=== PATIENT | female | born 1955 | race Caucasian/White ===

== ENCOUNTER 2017-08-14 09:39 | Emergency (ER) | payer OTHER ==
--- NOTE | 2017-08-14 11:59 | RAD ---
HISTORY: Status post colonoscopy, abdominal pain COMPARISONS: None VIEWS: Frontal supine and upright views of the abdomen. FINDINGS: BOWEL: There is a nonspecific bowel gas pattern with nondilated small bowel gas. There is gaseous distention of the colon without dilatation. CALCULI: There are no abnormal calculi. BONES AND SOFT TISSUES: There are no osseous abnormalities. OTHER FINDINGS: The lung bases are clear. There is no subphrenic gas. IMPRESSION: NONSPECIFIC BOWEL GAS PATTERN. NO APPRECIABLE FREE INTRAPERITONEAL GAS.
[2017-08-14 12:09] VITALS: BP 140/75
--- NOTE | 2017-08-16 12:13 | ED ---
Angel White Nilda, scribed for Reed Hdz MD on 08/14/17 at 1107 . Abdominal Pain/Female - HPI Summary HPI Summary: This patient is a 62 year old F presenting to [facility] with a chief complaint of intermittent diffuse abdominal pain since last night. Yesterday morning, patient had a colonoscopy to remove a polyp. S/p colonoscopy, later that day, she experienced abdominal pain and was advised to come to the ED. The patient rates the pain 2/10 in severity. Symptoms aggravated and alleviated by nothing. Patient reports she has not been able to pass much flatus. Patient denies N/V, fever, chills, and diaphoresis. Patient is currently on no medications. - History of Current Complaint Chief Complaint: EDAbdPain Stated Complaint: ABD PAIN, COLPOSCOPY YESTERDAY Time Seen by Provider: 08/14/17 10:37 Hx Obtained From: Patient Onset/Duration: Sudden Onset Timing: Intermittent Episode Lasting Severity Currently: Mild Pain Intensity: 2 Pain Scale Used: 0-10 Numeric Location: Diffuse Radiates: No Character: Dull Aggravating Factor(s): Nothing Alleviating Factor(s): Nothing Associated Signs and Symptoms: Negative: Diaphoresis, Fever, Nausea Allergies/Adverse Reactions: Allergies Allergy/AdvReac Type Severity Reaction Status Date / Time No Known Allergies Allergy Verified 08/14/17 10:03 PMH/Surg Hx/FS Hx/Imm Hx Endocrine/Hematology History: Denies: Hx Diabetes Cardiovascular History: Denies: Hx Congestive Heart Failure, Hx Hypertension Respiratory History: Reports: Other Respiratory Problems/Disorders - pneumonia since April 2016 History: Denies: Hx Renal Disease Musculoskeletal History: Reports: Hx Back Problems - partial herniated disc l-4/ 5 Sensory History: Reports: Hx Contacts or Glasses - reading glasses Opthamlomology History: Reports: Hx Contacts or Glasses - reading glasses Neurological History: Reports: Hx Headaches - occasional - Cancer History Hx Chemotherapy: No Hx Radiation Therapy: No - Surgical History Surgery Procedure, Year, and Place: tonsillectomy as a child Infectious Disease History: No Infectious Disease History: Denies: Traveled Outside the [place] in Last 30 Days - Family History Known Family History: Positive: Hypertension, Diabetes - Social History Alcohol Use: Daily Alcohol Amount: two glasses of wine daily Substance Use Type: Reports: None Smoking Status (MU): Never Smoked Tobacco Review of Systems Negative: Fever, Chills, Skin Diaphoresis Negative: Erythema Negative: Sore Throat Negative: Chest Pain Negative: Shortness Of Breath, Cough Positive: Abdominal Pain, Other - inability to produce flatus . Negative: Vomiting, Nausea Negative: dysuria, hematuria Negative: Myalgia, Edema Negative: Rash Neurological: Other - negative dizziness All Other Systems Reviewed And Are Negative: Yes Physical Exam - Summary Physical Exam Summary: Constitutional: Well-developed, Well-nourished, Alert. (-) Distressed Skin: Warm, Dry HENT: Normocephalic; Atraumatic Eyes: Conjunctiva normal Neck: Musculoskeletal ROM normal neck. (-) JVD, (-) Stridor, (-) Tracheal deviation Cardio: Rhythm regular, rate normal, Heart sounds normal; Intact distal pulses; The pedal pulses are 2+ and symmetric. Radial pulses are 2+ and symmetric. (-) Murmur Pulmonary/Chest wall: Effort normal. (-) Respiratory distress, (-) Wheezes, (-) Rales Abd: Soft, (-) Tenderness, (-) Distension, (-) Guarding, (-) Rebound Musculoskeletal: (-) Edema Lymph: (-) Cervical adenopathy Neuro: Alert, Oriented x3 Psych: Mood and affect Normal Triage Information Reviewed: Yes Vital Signs On Initial Exam: Initial Vitals Temp Pulse Resp BP Pulse Ox 97.6 F 61 20 160/71 100 08/14/17 09:55 08/14/17 09:55 08/14/17 09:55 08/14/17 09:55 08/14/17 09:55 Vital Signs Reviewed: Yes - Jono Coma Scale Coma Scale Total: 15 Diagnostics - Vital Signs Vital Signs Temp Pulse Resp BP Pulse Ox 08/14/17 10:30 69 18 141/70 100 08/14/17 10:05 62 14 100 08/14/17 10:03 145/67 08/14/17 09:55 97.6 F 61 20 160/71 100 - Laboratory Lab Statement: Any lab studies that have been ordered have been reviewed, and results considered in the medical decision making process. - Radiology Abdomen XRAY Radiology Interpretation Completed By: Radiologist - reveals nonspecific bowel gas pattern. No appreciable free intraperitoneal gas. ED physician has reviewed this radiology report and agrees. Re-Evaluation - Re-Evaluation First Eval Re-Evaluation Time: 12:10 Comment: Patient tolerated meal. Repeat abdominal exam showed non-tender, non- distended. Abdominal Pain Fem Course/Dx - Course Course Of Treatment: This patient is a 62 year old F presenting to [facility] with a chief complaint of intermittent diffuse abdominal pain since last night. Yesterday morning, patient had a colonoscopy to remove a polyp and experienced abdominal pain. She was advised to come to the ED. The patient rates the pain 2/ 10 in severity. Symptoms aggravated and alleviated by nothing. Patient reports she has not been able to pass much flatus. Patient denies passing flatus, N/V, fever, chills, and diaphoresis. Patient is currently on no medications. Abdomen XRAY, per radiologist, reveals nonspecific bowel gas pattern. No appreciable free intraperitoneal gas. ED physician has reviewed this radiology report and agrees. [1210] Re-eval: Patient tolerated meal. Repeat abdominal exam showed non-tender, non-distended. Patient will be discharged with a diagnosis of gas cramps and is advised to follow up with PCP in 2-3 days. The patient is agreeable with this plan. - Diagnoses Provider Diagnoses: Gas cramps Discharge - Discharge Plan Condition: Stable Disposition: HOME Referrals: Jerilyn Edward MD [Primary Care Provider] - 3 Days Additional Instructions: RETURN TO THE EMERGENCY DEPARTMENT FOR CHANGING OR WORSENING SYMPTOMS. The documentation as recorded by the Angel lim Nilda accurately reflects the service I personally performed and the decisions made by me, Reed Hdz MD.
== END 2017-08-14 12:24 | disposition home or self-care (01) ==
LOC: ED 09:39
DX: R14.1 Gas pain (principal)
CPT/HCPCS: 74020; 99282

== ENCOUNTER 2019-03-28 10:52 | Emergency (ER) | payer OTHER ==
--- NOTE | 2019-03-28 11:04 | UC ---
Hand/Wrist HPI - HPI Summary HPI Summary: CHIEF COMPLAINT and HPI: This is a 63-year-old healthy white female who 24 hours ago smashed her left hand in door. There is pain and evident injury to the left long and to lesser extent left index finger. Patient has no complaints of limitation of movement. Pain is 2/10 and is located mostly on the distal aspect of the left long finger. VITAL SIGNS & SaO2 REVIEWED. Within normal limits unless noted here. 158/91 NURSES NOTE REVIEWED.Pt states an oak trap door slammed shut on left middle and index finger 03/27/19. Noted bruising in area. - History Of Current Complaint Stated Complaint: SMASHED FINGER Time Seen by Provider: 03/28/19 10:55 - Allergies/Home Medications Allergies/Adverse Reactions: Allergies Allergy/AdvReac Type Severity Reaction Status Date / Time smallpox vaccine,live Allergy Rash Verified 03/28/19 10:58 Home Medications: Home Medications Melatonin 1.5 mg PO BEDTIME 03/28/19 [History Confirmed 03/28/19] PMH/Surg Hx/FS Hx/Imm Hx - Additional Past Medical History Additional PMH: PAST MEDICAL HISTORY- pneumonia, sepsis; psvt CHRONIC and RECURRENT HEALTH PROBLEM LIST REVIEWED. VISIT HISTORY REVIEWED. MEDICATIONS & ALLERGIES REVIEWED. HYPERTENSION STATUS: no medicaiton FAMILY HISTORY: Positive for: hypertension Patient denies family history of: stroke, diabetes, cancer. SOCIAL HISTORY: non-smoker, lives with , and works as a medical resident. - Surgical History Surgical History: Yes Surgery Procedure, Year, and Place: tonsillectomy as a child - Family History Known Family History: Positive: Hypertension, Diabetes - Social History Alcohol Use: Daily Alcohol Amount: two glasses of wine daily Substance Use Type: None Smoking Status (MU): Never Smoked Tobacco - Immunization History Most Recent Influenza Vaccination: Fall 2014 Most Recent Tetanus Shot: 8 years ago Most Recent Pneumonia Vaccination: never Review of Systems All Other Systems Reviewed And Are Negative: Yes Constitutional: Positive: Negative Skin: Positive: Negative Eyes: Positive: Negative ENT: Positive: Negative Respiratory: Positive: Negative. Negative: Shortness Of Breath Cardiovascular: Positive: Negative. Negative: Palpitations Gastrointestinal: Positive: Negative. Negative: Abdominal Pain Genitourinary: Positive: Negative. Negative: Dysuria Neurovascular: Negative: Decreased Sensation, Decreased Pulses Musculoskeletal: Positive: Edema - left long finger, Other: - subungual hematoma minimal, under nail of left long and left index finger Physical Exam - Summary Physical Exam Summary: Appearance: The patient is well-appearing, is in no pain or distress, and is well-nourished. Eyes: Conjunctiva are clear. Pupils are equal and reactive to light and accommodation. Extra ocular muscle movement is intact. ENT: The hearing is grossly normal, the pharynx is normal, and the TMs are normal. There is no muffled or hoarse voice. No stridor. Neck: The neck is supple and there is no lymphadenopathy. Respiratory: The chest is non-tender to palpation and without crepitus. The lungs are clear, there are normal breath sounds, and there is no respiratory distress. No wheezes, rales or rhonchi. Cardiovascular: Heart sounds reveal a regular rate and rhythm. There are no clicks, rubs or murmurs. There are no carotid bruits or thrills. Circulation is grossly intact. Abdomen: The abdomen is soft and nontender. There is no organomegaly. Bowel sounds are present and within normal limits. No point tenderness at McBurneys point. No CVA tenderness. Musculoskeletal: Strength is intact. The patient moves all extremities. Left hand: Examination shows a swelling of the left long finger with slight subungual hematoma as well as slight subungual hematoma to the left index. There is full circulation, motor and sensory. Neurological: The patient is alert. Motor and sensory are examination grossly intact. Speech is normal. Psychological: The patient displays age appropriate behavior, and is conversant. GCS=15. Skin: Negative for rashes. Triage Information Reviewed: Yes Vital Signs Reviewed: Yes Hand/Wrist Course/Dx - Course Course Of Treatment: MDM: This is a 63-year-old healthy white female who 24 hours ago smashed her left hand in door. There is pain and evident injury to the left long and to lesser extent left index finger. Patient has no complaints of limitation of movement. Pain is 2/10 and is located mostly on the distal aspect of the left long finger. EXAMINATION OF THE LEFT HAND SHOWS FULL CIRCULATION, MOTOR AND SENSORY OF THE LEFT INDEX AND THE LEFT LONG FINGER. THERE ARE MINIMAL SUBUNGUAL HEMATOMAS TO THESE FINGERS. THERE IS SWELLING OF THE LEFT LONG FINGER. X-RAY IS POSITIVE FOR FRACTURE. MY DIAGNOSIS IS TUFT FRACTURE OF THE DISTAL PHALANX OF THE LEFT LONG LONG FINGER. The plan is to splint these fingers with orthopedic follow up. Use warm moist heat in the morning. Elevate. Use ice during the day for discomfort. PROCEDURE: SPLINT PLACED BY NURSE OVER DISTAL PHALANX, LONG FINGER. MEDICATIONS REVIEWED. HYPERTENSION STATUS REVIEWED WITH PATIENT IF blood pressure is above 120/80. Patient will follow up with PMD within 4 weeks for elevated BP. - Differential Dx/Diagnosis Differential Diagnosis/HQI/PQRI: Contusion, Fracture, Sprain, Strain, Subungual Hematoma Provider Diagnosis: Fracture, finger, distal phalanx Discharge - Sign-Out/Discharge Documenting (check all that apply): Patient Departure All imaging exams completed and their final reports reviewed: Yes - Discharge Plan Condition: Stable Disposition: HOME Referrals: Jerilyn Edward MD [Primary Care Provider] - Additional Instructions: WE DISCUSSED: PLEASE SEEK CARE AT THE EMERGENCY DEPARTMENT IF SYMPTOMS WORSEN OR IF NEW SYMPTOMS DEVELOP. FOLLOW UP WITH YOUR PRIMARY CARE PHYSICIAN IF CONDITION CONTINUES BEYOND 3 DAYS WITHOUT IMPROVEMENT. YOUR DIAGNOSIS IS: Fracture of the tip of the left long finger; small amount of blood under the nail. YOUR PRESCRIPTION RECOMMENDATION IS: none OTHER INSTRUCTIONS: Use splint, warm moist heat the morning, elevate, ice during the day for pain. Hypertension Discharge Instructions: Your blood pressure reading today was 158/91, indicating HYPERTENSION. Follow- up with your primary care provider within 4 weeks for blood pressure check and appropriate recommendations and treatment, as needed. Call Dr. Moore for follow up. FOR PAIN AND/OR SLEEP: For pain: Ibuprofen (Motrin and other brand names) 400-600mg PLUS acetaminophen (Tylenol and other brand names) 500mg - 1000mg every 8 hours. - Billing Disposition and Condition Condition: STABLE Disposition: Home
[2019-03-28 11:42] VITALS: BP 152/89
== END 2019-03-28 11:50 | disposition home or self-care (01) ==
LOC: UCEAST 10:52
DX: S62.663A Nondisplaced fracture of distal phalanx of left middle finger, initial encounter for closed fracture (principal); S60.132A Contusion of left middle finger with damage to nail, initial encounter; S60.122A Contusion of left index finger with damage to nail, initial encounter; W23.0XXA Caught, crushed, jammed, or pinched between moving objects, initial encounter; Y92.9 Unspecified place or not applicable; M19.042 Primary osteoarthritis, left hand
CPT/HCPCS: 99213; G0463